=== PATIENT | female | born 1985 | race Hispanic/Latino ===

== ENCOUNTER 2017-08-20 21:18 | Emergency (ER) | payer OTHER ==
[~2017-08-20] VITALS: Ht 162.6 cm; Wt 70.3 kg
[~2017-08-20 21:18] MED LIST: ELIMITE60 GM TOP; FLEXERIL10 MG PO; HYDROCORTI2.5 %/30 G TOP; IBU800 MG PO
[2017-08-20 21:24] VITALS: BP 124/75
--- NOTE | 2017-08-20 23:35 | ED EYE COMPLAINT ---
History of Present Illness General Chief Complaint: Eye Problems Stated Complaint: PT LT EYE IS SWOLLEN Source: patient Exam Limitations: no limitations Vital Signs & Intake/Output Vital Signs & Intake/Output Vital Signs Date Time Temp Pulse Resp B/P B/P Pulse O2 O2 Flow FiO2 Mean Ox Delivery Rate 08/20 2123 95.9 56 20 124/75 100 Room Air Allergies Coded Allergies: NO KNOWN ALLERGIES (04/20/14) Reconcile Medications Amoxicillin/Potassium Clav (Augmentin 875-125 Tablet) 875 MG-125 MG TABLET 1 TAB PO BID PERIORBITAL CELLULITIS Meloxicam (Mobic) 15 MG TABLET 1 TAB PO DAILY PRN PAIN Permethrin (Elimite) 5 % CREAM..G. 1 DANYELL TOP ONCE SCABIES Triage Note: PT FROM HOME C/O LEFT EYE SWOLLEN SINCE TODAY. PT AWOKE THIS MORNING WITH LEFT EYELID SWOLLEN, RED, AND ITCHY. PT STATES PAIN 4/10. PT DENIES BLURRY VISION OR ALVARENGA. PT STATES SHE DOES SLEEP WITH MAKEUP ON NORMALLY. PT HAS NOT SELF MEDICATED WITH ANYTHING. NO DISTRESS NOTED INTRIAGE. VSS Triage Nurses Notes Reviewed? yes Onset: Gradual Duration: constant Timing: single episode today Injury Environment: home Severity: moderate Severity Numbers: 5 : No Patient currently breastfeeds: No HPI: Patient is a 32-year-old female who presents emergency room with concerns of left upper eyelid swelling redness and itching complaints patient does state that she wears mascara however she did not remove mascara prior to her sleeping last night Denies any contact lens wear denies any fevers chills denies any trauma denies any blurred vision red eye, complaints discharge photophobia denies any foreign body complaints Past History Travel History Traveled to [place] past 21 day No Medical History Any Pertinent Medical History? see below for history Neurological: NONE EENT: NONE Cardiovascular: NONE Respiratory: NONE Gastrointestinal: NONE Hepatic: NONE Renal: NONE Musculoskeletal: NONE Psychiatric: NONE Endocrine: hypothyroidism Blood Disorders: NONE Cancer(s): NONE Surgical History Surgical History: non-contributory Psychosocial History What is your primary language Togolese Tobacco Use: Never used ETOH Use: occasional use Family History Hx Contributory? No Review of Systems Review of Systems Constitutional: Reports: no symptoms. Eyes: Reports: see HPI. Ear: Reports: no symptoms. Nose: Reports: no symptoms. Mouth: Reports: no symptoms. Throat: Reports: no symptoms. Respiratory: Reports: no symptoms. Cardiovascular: Reports: no symptoms. GI: Reports: no symptoms. Genitourinary: Reports: no symptoms. Musculoskeletal: Reports: no symptoms. Skin: Reports: no symptoms. Neurological/Psychological: Reports: no symptoms. Hematologic/Endocrine: Reports: no symptoms. Immunologic/Allergic: Reports: no symptoms. All Other Systems: Reviewed and Negative Physical Exam General Appearance: no apparent distress, alert General Inspection: normal inspection Eyelid: everted for exam, erythema, NOTED UPPER EYELID MILD SWELLING AND ERYTHEMA NO ORBITAL OR PERIORBITAL ERYTHEMA OR SWELLING nO INJECTION OF CONJUNCTIVA eVERTED LID NO ERYTHEMA Conjunctiva/Sclera: normal inspection Cornea: normal inspection EOM: intact Pupil: normal accommodation, normal pupil, PERRL General Inspection: normal inspection Eyelid: normal inspection, everted for exam Conjunctiva/Sclera: normal inspection Cornea: normal inspection EOM: intact Pupil: normal accommodation, normal pupil, PERRL Physical Exam Head: atraumatic Nose: normal inspection Mouth/Throat: normal mouth inspection, pharynx normal Neck: normal inspection Cardiovascular/Respiratory: normal breath sounds, normal peripheral pulses Neurologic/Psych: no motor/sensory deficits Skin: intact Progress Differential Diagnosis: corneal abrasion, corneal foreign body, conjunctivitis, detached retina, glaucoma, globe rupture, retinal art./v. occlusion Plan of Care: Patient was PERRLA extraocular muscles were intact, conjunctiva was unremarkable no foreign bodies on exam no stye or hordeolum noted patient will be treated for periorbital cellulitis no concerns of orbital cellulitis at this time however did discuss with patient that if symptoms worsen to return to emergency room and she will comply. Departure Departure Disposition: HOME OR SELF CARE Condition: Stable Clinical Impression Primary Impression: Periorbital cellulitis of left eye Referrals: Unknown (PCP/Family) Additional Instructions: As discussed begin the prescription meloxicam as directed for pain and inflammation, begin the prescription of Augmentin as directed for the full course, if symptoms worsen or if YOU develop new concerning symptom return to emergency room, follow-up on Tuesday with her primary care doctor or front end java developer Dr. MEZA for further evaluation treatment. BEGIN applying warm compresses to the area to improve symptoms Departure Forms: Customer Survey General Discharge Information Prescriptions: Current Visit Scripts Meloxicam (Mobic) 1 TAB PO DAILY PRN PAIN #10 TAB Amoxicillin/Potassium Clav (Augmentin 655-125 Tablet) 1 TAB PO BID #20 TAB
[2017-08-20] MEDS ORDERED: AUGMENTIN 875-1 EACH PO (23:54)
[2017-08-20] MEDS ORDERED: MOBIC15 M1 PO (23:54)
== END 2017-08-21 00:01 ==
LOC: ERH 21:18
DX: L03.213 Periorbital cellulitis (principal)

== ENCOUNTER 2018-05-05 10:26 | Emergency (ER) | payer OTHER ==
[~2018-05-05] VITALS: Ht 162.6 cm; Wt 74.8 kg
[~2018-05-05 10:26] MED LIST changes: +AUGMENTIN 875-1 EACH PO; +MOBIC15 M1 PO
--- NOTE | 2018-05-05 10:36 | ED UPPER/LOWER EXTREMITY COMPL ---
History of Present Illness General Chief Complaint: Upper Extremity Problem Stated Complaint: LEFT WRIST PAIN Source: patient Exam Limitations: no limitations Vital Signs & Intake/Output Vital Signs & Intake/Output Vital Signs Date Time Temp Pulse Resp B/P B/P Pulse O2 O2 Flow FiO2 Mean Ox Delivery Rate 05/05 1337 98.6 50 16 122/58 99 Room Air 05/05 1035 97.0 57 18 122/57 98 Room Air Allergies Coded Allergies: NO KNOWN ALLERGIES (NONE 05/05/18) Reconcile Medications Methimazole 5 MG TABLET 1 TAB PO DAILY THYROID (Reported) Triage Nurses Notes Reviewed? yes Onset: Gradual Duration: week(s): Timing: recent history Severity: moderate Pain/Injury Location: Left: Wrist. HPI: 32YO female presents to ED complaining of left wrist pain worsening since yesterday. Patient states she injury her left wrist about one year ago at work. She states her pain comes and goes intermittently. 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 Patient states pain is worse with wrist flexion and extension. Patient states she had rays performe a long time ago however denies broken bones. There was no trauma or new injury. Patient has tried Advil with only minimal relief. The patient describes the pain as stable through out the day. She denies numbness, tingling. (Radha Mcdonald) Past History Travel History Traveled to [place] past 21 day No Medical History Any Pertinent Medical History? see below for history Neurological: NONE EENT: NONE Cardiovascular: NONE Respiratory: NONE Gastrointestinal: NONE Hepatic: NONE Renal: NONE Musculoskeletal: NONE Psychiatric: NONE Endocrine: hypothyroidism Blood Disorders: NONE Cancer(s): NONE Surgical History Surgical History: non-contributory Psychosocial History What is your primary language Persian Family History Hx Contributory? No (Radha Mcdonald) Review of Systems Review of Systems Constitutional: Reports: no symptoms. EENTM: Reports: no symptoms. Respiratory: Reports: no symptoms. Cardiovascular: Reports: no symptoms. Gastrointestinal/Abdominal: Reports: no symptoms. Genitourinary: Reports: no symptoms. Musculoskeletal: Reports: see HPI. Skin: Reports: no symptoms. Neurological/Psychological: Reports: no symptoms. Hematologic/Endocrine: Reports: no symptoms. Immunological: Reports: no symptoms. All Other Systems: Reviewed and Negative (Radha Mcdonald) Physical Exam Physical Exam General Appearance: well developed/nourished, no apparent distress, alert, awake Head: atraumatic, normal appearance Eyes: Bilateral: normal appearance. Ears, Nose, Throat: hearing grossly normal Neck: normal inspection, supple, full range of motion Cardiovascular/Respiratory: normal peripheral pulses, no respiratory distress Peripheral Pulses: 2+ radial (R), 2+ radial (L) Back: normal inspection, normal range of motion Elbow Left: normal range of motion, normal inspection, nontender Elbow Right: normal range of motion, normal inspection Hand Left: normal inspection, normal range of motion, tenderness to posterior wrist without deformity, ROM intact Hand Right: normal inspection, normal range of motion Neurologic/Tendon: normal sensation, normal motor functions, normal tendon functions Skin: intact, normal color, warm/dry (Catherine RANKIN,Radha Merida) Progress Differential Diagnosis: fracture, sprain, tendon injury, carpal tunnel, arthritis Plan of Care: Orders Procedure Date/time Status Durable Medical Equipment 05/05 1310 Active URINE 05/05 1035 Complete Laboratory Tests 05/05/18 1053: Urine Test NEGATIVE Patient's x-rays are stable. Patient has had this pain for one year since injury. She has not seen a music therapy specialist for this pain. Patient is neurovascularly intact. I recommended wrist splint, RICE therapy, and ortho follow up for possible physical therapy or further diagnostic imaging. The patient agrees with this plan. Diagnostic Imaging: Viewed by Me: Radiology Read. Discussed w/RAD: Radiology Read. Radiology Impression: PATIENT: BARRON VICENTE PRESENT AGE: 32 PATIENT ACCOUNT NO: [id number] : 86 LOCATION: [facility] ORDERING PHYSICIAN: Radha RANKIN SERVICE DATE: 05/05/18-1034 EXAM TYPE: RAD - XRY-WRIST COMPLETE-LEFT EXAMINATION: XR WRIST, LEFT CLINICAL INFORMATION: Chronic wrist pain. Assess for fracture or degenerative changes. COMPARISON: Left wrist x-ray series 06/08/2017. TECHNIQUE: PA, lateral, oblique and scaphoid views of the left wrist. FINDINGS: There is normal alignment of the osseous structures. No fractures are demonstrated. The joint spaces are maintained. There is no significant soft tissue swelling. There are no radiodense foreign bodies. IMPRESSION: 1. There are no acute fractures or subluxations. The soft tissues are unremarkable. DICTATED BY: Ryder Mitchell MD DATE/TIME DICTATED:05/05/181222 SALES DIRECTOR:JOLYNN DATE/TIME TRANSCRIBED:05/05/181222 CONFIDENTIAL, DO NOT COPY WITHOUT APPROPRIATE AUTHORIZATION. <Electronically signed in Other Vendor System> SIGNED BY: Ryder Mitchell MD 05/05/18 1223 (Radha Mcdonald) Departure Departure Disposition: HOME OR SELF CARE Condition: Stable Clinical Impression Primary Impression: Wrist pain Referrals: Orlando Butterfield MD Additional Instructions: Take ibuprofen 600mg three times a day with meals as needed for pain and inflammation. Rest, apply ice, wear splint as needed. Call orthopedic's office for follow up. Return with worsening symptoms or concerns. Please note that there might be incidental findings in your evaluation that are unrelated to the current emergency department visit. Please notify your primary care doctor about this emergency department visit in order to obtain and review all of the testing performed so that these incidental findings can be monitored as needed. If you had an x-ray performed, please understand that some fractures may not be seen on the initial set of x-rays. If your symptoms persist you might need a repeat set of x-rays to check for such a fracture. If you had a laceration evaluated, please understand that foreign bodies such as glass or wood may not be visible to the naked eye or on plain x-rays. If the wound becomes red, swollen, increasingly more painful or if there is any drainage from the wound, please have it reevaluated by a physician for the possibility of a retained foreign body. If you're unable to follow up as outlined in the discharge instructions please return to the emergency department. Thank you for choosing the [facility] Emergency Department for your care. It was a pleasure to serve you today. Departure Forms: Customer Survey General Discharge Information (Radha Mcdonald) PA/STRIKE PLATE ATTACHER Co-Sign Statement Statement: ED Attending supervision documentation- [] I saw and evaluated the patient. I have also reviewed all the pertinent lab results and diagnostic results. I agree with the findings and the plan of care as documented in the PA's/STRIKE PLATE ATTACHER's documentation. [X] I have reviewed the ED Record and agree with the PA's/STRIKE PLATE ATTACHER's documentation. [] Additions or exceptions (if any) to the PAs/STRIKE PLATE ATTACHER's note and plan are summarized below: [] (Jv Johns DO)
--- NOTE | 2018-05-05 12:29 | RADIOLOGY REPORT ---
EXAMINATION: XR WRIST, LEFT CLINICAL INFORMATION: Chronic wrist pain. Assess for fracture or degenerative changes. COMPARISON: Left wrist x-ray series 06/08/2017. TECHNIQUE: PA, lateral, oblique and scaphoid views of the left wrist. FINDINGS: There is normal alignment of the osseous structures. No fractures are demonstrated. The joint spaces are maintained. There is no significant soft tissue swelling. There are no radiodense foreign bodies. IMPRESSION: 1. There are no acute fractures or subluxations. The soft tissues are unremarkable.
[2018-05-05] MEDS ORDERED: METHIMAZOLE5 M1 PO (12:56)
[2018-05-05 13:37] VITALS: BP 122/58
== END 2018-05-05 13:38 ==
LOC: ERH 10:26
DX: M25.532 Pain in left wrist (principal)
CPT/HCPCS: 73110-LT; 81025